=== PATIENT | male | born 1970 | race African-American/Black ===

== ENCOUNTER 2018-11-11 12:42 | Emergency (ER) | payer BC ==
[~2018-11-11] VITALS: Ht 162.6 cm; Wt 74.8 kg
[2018-11-11 12:47] VITALS: BP_SYST 164
[2018-11-11] MEDS ORDERED: KETOROLAC TROMETHAMINE 60 MG/2 ML VIAL IM ONE (13:30)
[2018-11-11 14:10] VITALS: BP_SYST 150
== END 2018-11-11 14:10 | disposition home or self-care (01) ==
LOC: SED 12:42
DX: S49.91XA Unspecified injury of right shoulder and upper arm, initial encounter (principal); R03.0 Elevated blood-pressure reading, without diagnosis of hypertension; V53.5XXA Driver of pick-up truck or van injured in collision with car, pick-up truck or van in traffic accident, initial encounter; Y93.89 Activity, other specified; Y92.410 Unspecified street and highway as the place of occurrence of the external cause; Y99.8 Other external cause status
CPT/HCPCS: 73030; 96372; 99283; J1885